=== PATIENT | male | born 2000 | race Caucasian/White ===

== ENCOUNTER 2025-03-17 13:51 | Outpatient (CLI) | payer OTHER, SELFPAY | END 2025-03-17 13:52 | disposition home or self-care (01) | PROVIDERS: Visit Provider Obstetrics & Gynecology | DX: F64.0 Transsexualism (principal); Z79.899 Other long term (current) drug therapy; Z79.890 Hormone replacement therapy | CPT/HCPCS: 80053; 82670; 84270; 84402; 84403 ==